=== PATIENT | male | born 1980 ===

== ENCOUNTER 2016-12-16 18:54 | Observation (INO) | payer MEDICAID, MEDICARE, OTHER ==
[2016-12-16 19:04] VITALS: BMI 25.8
--- NOTE | 2016-12-16 19:49 | C.PDOC ---
History Of Present Illness The patient, a 36 y/o male, presents to the ED via EMS for evaluation of public intoxication for an unknown duration. Patient admits to smoking PCP and was found ambulating through traffic nonsensically. Patient was physically confrontational with the police upon arrival. Otherwise, patient denies suicidal /homicidal ideation and has no physical complaints at this time. Time Seen by Provider: 12/16/16 19:11 Chief Complaint (Nursing): Substance Abuse History Per: Patient, EMS History/Exam Limitations: intoxication Onset/Duration Of Symptoms: Unknown Current Symptoms Are (Timing): Still Present Suicide/Self Injury Attempted (Context): None Modifying Factor(s): Other (+PCP) Associated Symptoms: denies: Suicidal Thoughts, Suicidal Plan Involuntary Hold By: None Recent travel outside of the [place]: No Additional History Per: Patient, EMS, Law Enforcement Past Medical History Reviewed: Historical Data, Nursing Documentation, Vital Signs Vital Signs: Last Vital Signs Temp 97.8 F 12/17/16 03:51 Pulse 58 L 12/17/16 03:51 Resp 16 12/17/16 03:51 BP 116/74 12/17/16 03:51 Pulse Ox 99 12/17/16 03:51 - Medical History PMH: Asthma, Bipolar Disorder, Depression Denies: Diabetes, Hepatitis, HIV, HTN, Chronic Kidney Disease, Seizures, Sexually Transmitted Disease Surgical History: No Surg Hx Family History: States: Unknown Family Hx - Social History Hx Tobacco Use: Yes Hx Alcohol Use: Yes (holidays) Hx Substance Use: Yes Review Of Systems Except As Marked, All Systems Reviewed And Found Negative. Psych: Positive for: Other (+public intoxication, PCP use ). Negative for: Suicidal ideation Physical Exam - Physical Exam Appears: No Acute Distress Skin: Normal Color, Warm, Dry Head: Atraumatic Eye(s): bilateral: Normal Inspection, EOMI Oral Mucosa: Moist Neck: Supple Chest: Symmetrical, No Deformity, No Tenderness Cardiovascular: Rhythm Regular, No Murmur Respiratory: Normal Breath Sounds, No Rales, No Rhonchi, No Wheezing Extremity: Normal ROM, Capillary Refill (less than 2 seconds ) Neurological/Psych: Other (intoxicated, bizarre ) Gait: Steady ED Course And Treatment O2 Sat by Pulse Oximetry: 96 (on RA) Pulse Ox Interpretation: Normal Progress Note: Labs ordered and reviewed. Reevaluation Time: 05:24 Reassessment Condition: Improved (sober, ambulatory, wants d/c.) Medical Decision Making Medical Decision Making: chronic pcp abuse ED OBSERVATION Date of observation admission: 12/16/16 Time of observation admission: 19:13 - Observation admission statement Patient is being placed in observation because:: intoxicated - Goals of Observation Goals of observation are:: sobriety - Progress Note Progress Note: 12/16/16 19:50 Patient is resting comfortably, vitals are stable. Disposition Doctor Will See Patient In The: Office Counseled Patient/Family Regarding: Studies Performed, Diagnosis - Disposition Disposition: HOME/ ROUTINE Disposition Time: 05:25 Condition: GOOD - Clinical Impression Clinical Impression: PCP (phencyclidine) abuse - Scribe Statement The provider has reviewed the documentation as recorded by the Scribe (Alejandra Poe) Provider Attestation: All medical record entries made by the Scribe were at my direction and personally dictated by me. I have reviewed the chart and agree that the record accurately reflects my personal performance of the history, physical exam, medical decision making, and the department course for this patient. I have also personally directed, reviewed, and agree with the discharge instructions and disposition.
[2016-12-16] MEDS ORDERED: DiphenhydrAMINE 50 mg/ml Inj IM STA (21:07)
[2016-12-16] MEDS ORDERED: DiphenhydrAMINE 50 mg/ml Inj ONE (21:10)
[2016-12-17 03:52] VITALS: RESP 16
[2016-12-17 05:37] VITALS: TEMP 98.1; O2SAT 98
[2016-12-17 05:38] VITALS: BP 118/72; PULSE 88
== END 2016-12-17 05:23 | disposition home or self-care (01) ==
LOC: C.ER 18:54 → C.9OBSV 19:13
PROVIDERS: ADMIT Internal Medicine; ATTEND Internal Medicine
DX: F16.10 Hallucinogen abuse, uncomplicated (principal); F17.200 Nicotine dependence, unspecified, uncomplicated
CPT/HCPCS: 96372; G0378; J1200; J2060; J3486

== ENCOUNTER 2017-04-20 20:15 | Emergency (ER) | payer SELFPAY ==
[2017-04-20 20:33] VITALS: O2SAT 97
--- NOTE | 2017-04-20 21:19 | C.PDOC ---
History Of Present Illness 36 year old male who was brought to the ER via EMS after was found intoxicated on ETOH and PCP. [place] was [place] [facility] [place] and was picked up and brought home by . Patient then left his home and continued to drink ETOH and smoke PCP. Denies physical complaints at this time. Time Seen by Provider: 04/20/17 21:18 Chief Complaint (Nursing): Substance Abuse History Per: Patient History/Exam Limitations: no limitations Onset/Duration Of Symptoms: Hrs Current Symptoms Are (Timing): Still Present Suicide/Self Injury Attempted (Context): None Modifying Factor(s): Alcohol Associated Symptoms: denies: Depression, Suicidal Thoughts, Suicidal Plan Involuntary Hold By: None Recent travel outside of the [place]: No Past Medical History Reviewed: Historical Data, Nursing Documentation, Vital Signs Vital Signs: Last Vital Signs Temp 98 F 04/20/17 21:46 Pulse 72 04/20/17 21:46 Resp 18 04/20/17 21:46 BP 128/70 04/20/17 21:46 Pulse Ox 97 04/20/17 23:47 - Medical History PMH: Anxiety, Asthma, Bipolar Disorder, Depression, Schizophrenia Surgical History: No Surg Hx Family History: States: Unknown Family Hx - Social History Hx Tobacco Use: Yes Hx Alcohol Use: Yes (unobtainable) Hx Substance Use: Yes (PCP) - Immunization History Hx Tetanus Toxoid Vaccination: No Hx Influenza Vaccination: No Hx Pneumococcal Vaccination: No Review Of Systems Constitutional: Negative for: Fever, Chills Gastrointestinal: Negative for: Nausea, Vomiting, Diarrhea Physical Exam - Physical Exam Appears: Non-toxic, Other (ETOH on breath, no injuries, bizarre) Skin: Normal Color, Warm, Dry Head: Atraumatic, Normacephalic Oral Mucosa: Moist Chest: Symmetrical, No Tenderness Cardiovascular: Rhythm Regular, No Murmur Respiratory: Normal Breath Sounds, No Rales, No Rhonchi, No Wheezing Gastrointestinal/Abdominal: Soft, No Tenderness Neurological/Psych: Oriented x3, Normal Speech, Normal Cognition Gait: Steady ED Course And Treatment O2 Sat by Pulse Oximetry: 97 (Room air) Pulse Ox Interpretation: Normal Medical Decision Making Medical Decision Making: typical etoh and pcp abuse just seen @ [facility] [place] earlier today, picked him up, brought him home, went out and did more pcp/etoh Stable gait, here to take home AGAIN. Disposition Doctor Will See Patient In The: Office Counseled Patient/Family Regarding: Studies Performed, Diagnosis - Disposition Referrals: Alcoholics Anonymous [Outside] [facility] [Outside] [facility] [Outside] [facility] [Outside] Disposition: HOME/ ROUTINE Disposition Time: 21:19 Condition: GOOD Additional Instructions: seek AA and detox programs. Stop PCP abuse Instructions: Abuse of Alcohol (ED) Forms: [employer] [facility] (Taiwanese) - Clinical Impression Clinical Impression: Alcohol abuse, PCP (phencyclidine) abuse - Scribe Statement The provider has reviewed the documentation as recorded by the Scribe Bashir Fairchild All medical record entries made by the Scribe were at my direction and personally dictated by me. I have reviewed the chart and agree that the record accurately reflects my personal performance of the history, physical exam, medical decision making, and the department course for this patient. I have also personally directed, reviewed, and agree with the discharge instructions and disposition.
[2017-04-20 21:48] VITALS: BP 128/70; PULSE 72; RESP 18; TEMP 98
== END 2017-04-20 21:30 | disposition home or self-care (01) ==
LOC: C.ER 20:15
DX: F16.10 Hallucinogen abuse, uncomplicated (principal); F10.10 Alcohol abuse, uncomplicated; Y90.9 Presence of alcohol in blood, level not specified

== ENCOUNTER 2017-08-24 22:40 | Emergency (ER) | payer SELFPAY ==
[2017-08-25 00:04] LABS: BARBITURATES, UR NEGATIVE (NEGATIVE); BENZODIAZEPINES, UR NEGATIVE (NEGATIVE); OPIATES, UR NEGATIVE (NEGATIVE)
[2017-08-25 00:14] LABS: PHENCYCLIDINE, UR POSITIVE (NEGATIVE)
--- NOTE | 2017-08-25 00:18 | C.PDOC ---
History Of Present Illness Patient SUZAN (acompanied by police) for agitation likely due to substance abuse. Patient apparently found in [facility] banging his head against a wall. Patient is angry and agitated on ED arrival, trying to hit staff. Time Seen by Provider: 08/24/17 22:44 Chief Complaint (Nursing): Substance Abuse History Per: EMS History/Exam Limitations: clinical condition Onset/Duration Of Symptoms: Unknown Current Symptoms Are (Timing): Still Present Severity: Moderate Past Medical History Reviewed: Historical Data, Nursing Documentation, Vital Signs Vital Signs: Last Vital Signs Temp 98.3 F 08/25/17 06:59 Pulse 86 08/25/17 06:59 Resp 20 08/25/17 06:59 BP 131/80 08/25/17 06:59 Pulse Ox 99 08/25/17 06:59 - Medical History PMH: Anxiety, Asthma, Bipolar Disorder, Depression, Schizophrenia Family History: States: Unknown Family Hx - Social History Hx Tobacco Use: Yes Hx Alcohol Use: Yes (unobtainable) Hx Substance Use: Yes (PCP) - Immunization History Hx Tetanus Toxoid Vaccination: No Hx Influenza Vaccination: No Hx Pneumococcal Vaccination: No Review Of Systems Review Of Systems: ROS cannot be obtained secondary to pt's inabilty to answer questions. Physical Exam - Physical Exam Appears: Other (patient angry and agitates, cursing and trying to hit/punch staff) Head: Atraumatic, Normacephalic, No Swelling, No Abrasion, No Laceration Eye(s): bilateral: Other (dilated B/L ) Oral Mucosa: Moist Cardiovascular: Rhythm Regular (tachycardic ) Respiratory: Normal Breath Sounds, No Rales, No Rhonchi, No Wheezing Gastrointestinal/Abdominal: Normal Exam, Bowel Sounds, Soft, No Tenderness Extremity: Normal ROM Extremity: Bilateral: Atraumatic, Normal Color And Temperature, Normal ROM Neurological/Psych: Other (under influence of drugs, awake, alert, agitated) ED Course And Treatment O2 Sat by Pulse Oximetry: 100 (RA) Pulse Ox Interpretation: Normal Progress Note: Patient dangerous to staff and self, placed in 4 point restraints on ED arrival and given Haldol 5mg and Ativan 2mg IM. UDS and accucheck ordered and reviewed. Prior visits reviewed, patient has multiple prior ED visits for PCP abuse/agitation. 1:30AM- Patient arousable to verbal stimuli, pending AM sobriety. 4:15am - Patient sleeping comfortably, arousable to verbal stimuli. Reevaluation Time: 06:35 Reassessment Condition: Improved (Patient reassessed, is currently AAOx3, ambulating normally in ED. He is clinically sober at this time, will discharge. ) Disposition - Disposition Referrals: Non [facility] Provider, [Primary Care Provider] - Disposition: HOME/ ROUTINE Disposition Time: 06:50 Condition: STABLE Additional Instructions: STOP USING PCP FOLLOW UP WITH YOUR DOCTOR/CLINIC IN 1-2 DAYS RETURN TO ER IF SYMPTOMS WORSEN Forms: [facility] (Uzbek), General Discharge Instructions Print Language: DUTCH - Clinical Impression Clinical Impression: PCP (phencyclidine) abuse, Cannabis abuse
[2017-08-25 07:01] VITALS: BP 131/80; PULSE 86; RESP 20; TEMP 98.3
[2017-08-27 09:56] VITALS: O2SAT 100
== END 2017-08-25 06:59 | disposition home or self-care (01) ==
LOC: SUPCPDRO 22:40 → C.ER 22:40
DX: F16.10 Hallucinogen abuse, uncomplicated (principal); F12.10 Cannabis abuse, uncomplicated
CPT/HCPCS: 96372; 99285; G0480; J1630; J2060

== ENCOUNTER 2018-01-17 04:26 | Emergency (ER) | payer SELFPAY ==
--- NOTE | 2018-01-17 04:58 | C.PDOC ---
History Of Present Illness 37 year old male brought in by police after he was attempting to jump in front of cars. Patient admits to using PCP today. Denies physical complaints at this time. Chief Complaint (Nursing): Substance Abuse History Per: Patient History/Exam Limitations: no limitations Onset/Duration Of Symptoms: Hrs Current Symptoms Are (Timing): Still Present Modifying Factor(s): Other (PCP) Associated Symptoms: denies: Depression, Suicidal Thoughts Involuntary Hold By: None Recent travel outside of the [place]: No Additional History Per: Law Enforcement Past Medical History Reviewed: Historical Data, Nursing Documentation, Vital Signs Vital Signs: Last Vital Signs Temp 97.9 F 01/17/18 04:37 Pulse 91 H 01/17/18 05:39 Resp 14 01/17/18 05:39 BP 105/57 L 01/17/18 05:39 Pulse Ox 98 01/17/18 05:39 - Medical History PMH: Anxiety, Asthma, Bipolar Disorder, Depression, Schizophrenia Family History: States: Unknown Family Hx - Social History Hx Tobacco Use: Yes Hx Alcohol Use: Yes (unobtainable) Hx Substance Use: Yes (PCP) - Immunization History Hx Tetanus Toxoid Vaccination: No Hx Influenza Vaccination: No Hx Pneumococcal Vaccination: No Review Of Systems Constitutional: Negative for: Fever, Chills Cardiovascular: Negative for: Chest Pain, Palpitations Respiratory: Negative for: Cough, Shortness of Breath Gastrointestinal: Negative for: Nausea, Vomiting Physical Exam - Physical Exam Appears: Non-toxic Skin: Normal Color, Warm, Dry Head: Atraumatic, Normacephalic Eye(s): bilateral: Normal Inspection Oral Mucosa: Moist Chest: Symmetrical, No Tenderness Cardiovascular: Rhythm Regular Respiratory: Normal Breath Sounds, No Rales, No Rhonchi, No Wheezing Gastrointestinal/Abdominal: Soft, No Tenderness Neurological/Psych: Oriented x3, Normal Speech ED Course And Treatment - Laboratory Results Result Diagrams: 01/17/18 05:04 01/17/18 05:04 O2 Sat by Pulse Oximetry: 98 (Room air) Pulse Ox Interpretation: Normal Progress Note: Blood work and urinalysis ordered. Disposition - Disposition Disposition Time: 07:00 Condition: STABLE Forms: [facility] (Citizen Of [place]) - Clinical Impression Clinical Impression: Substance abuse - Scribe Statement The provider has reviewed the documentation as recorded by the Scribe Bashir Fairchild All medical record entries made by the Scribe were at my direction and personally dictated by me. I have reviewed the chart and agree that the record accurately reflects my personal performance of the history, physical exam, medical decision making, and the department course for this patient. I have also personally directed, reviewed, and agree with the discharge instructions and disposition.
[2018-01-17 05:11] LABS: MONO # 0.7 K/uL (0.0-0.8)
[2018-01-17 05:16] LABS: BASO # 0.1 K/uL (0.0-0.2); BASO % 0.5 % (0.0-2.0); EOS % 0.4 % (0.0-4.0); HEMOGLOBIN 13.5 g/dL (12.0-18.0); LYMPH # 3.3 K/uL (1.0-4.3); LYMPH % 30.2 % (20.0-40.0); MEAN CELL VOLUME 90.7 fL (80.0-94.0); MEAN CORPUSCULAR HEMOGLOBIN 31.7 pg (27.0-31.0); MONO % 6.2 % (0.0-10.0); NEUT # 6.9 K/uL (1.8-7.0); NEUT % 62.7 % (50.0-75.0); NRBC % 0.1 % (0.0-2.0); RBC 4.25 Mil/uL (4.40-5.90); RED CELL DISTRIBUTION WIDTH 13.4 % (11.5-14.5)
[2018-01-17 05:22] LABS: URINE BILIRUBIN NEGATIVE (NEGATIVE); URINE BLOOD NEGATIVE (NEGATIVE); URINE CLARITY Hazy (Clear); URINE COLOR Amber (YELLOW); URINE GLUCOSE (UA) NORMAL (Normal); URINE LEUKOCYTE ESTERASE NEG Leu/uL (Negative); URINE PROTEIN NEGATIVE (NEGATIVE)
[2018-01-17 05:23] LABS: ALB/GLOB RATIO 1.3 (1.0-2.1); ALBUMIN 4.1 g/dL (3.5-5.0); ALT/SGPT 205 U/L (21-72); AST/SGOT 240 U/L (17-59); BLOOD UREA NITROGEN 18 mg/dL (9-20); CALCIUM 9.6 mg/dl (8.6-10.4); GFR AFRICAN-AMERICAN > 60; GFR NON-AFRICAN AMERICAN > 60
[2018-01-17 05:24] LABS: BARBITURATES, UR NEGATIVE (NEGATIVE); BENZODIAZEPINES, UR NEGATIVE (NEGATIVE); OPIATES, UR NEGATIVE (NEGATIVE)
[2018-01-17 05:29] LABS: PHENCYCLIDINE, UR POSITIVE (NEGATIVE)
[2018-01-17 14:31] VITALS: RESP 18
[2018-01-17 17:59] VITALS: BP 120/75; PULSE 98; TEMP 98.4; O2SAT 99
== END 2018-01-17 18:00 | disposition home or self-care (01) ==
LOC: C.ER 04:26
DX: F19.10 Other psychoactive substance abuse, uncomplicated (principal); F20.9 Schizophrenia, unspecified; Z72.0 Tobacco use
CPT/HCPCS: 80053; 81001; 85025; 96372; 99285; G0480; J1630; J2060

== ENCOUNTER 2018-01-28 17:02 | Emergency (ER) | payer SELFPAY ==
[2018-01-28 17:24] VITALS: BMI 22.9
[2018-01-28 18:49] LABS: BARBITURATES, UR NEGATIVE (NEGATIVE); BENZODIAZEPINES, UR NEGATIVE (NEGATIVE); OPIATES, UR NEGATIVE (NEGATIVE)
[2018-01-28 18:50] LABS: PHENCYCLIDINE, UR POSITIVE (NEGATIVE)
[2018-01-28 22:00] VITALS: O2SAT 96
--- NOTE | 2018-01-29 00:34 | C.PDOC ---
History Of Present Illness Pt was BIBEMS due to public intoxication. Time Seen by Provider: 01/28/18 17:13 Chief Complaint (Nursing): Substance Abuse History Per: Patient, EMS History/Exam Limitations: intoxication Onset/Duration Of Symptoms: Unknown (today) Current Symptoms Are (Timing): Still Present Modifying Factor(s): Marijuana (with PCP) Severity: Severe Associated Symptoms: Agitation Additional History Per: Prior Records Past Medical History Reviewed: Historical Data, Nursing Documentation, Vital Signs Vital Signs: Last Vital Signs Temp 98.9 F 01/28/18 17:32 Pulse 56 L 01/29/18 00:31 Resp 17 01/29/18 00:31 BP 102/61 01/28/18 21:58 Pulse Ox 96 01/29/18 00:34 - Medical History PMH: Anxiety, Asthma, Bipolar Disorder, Depression, Schizophrenia Family History: States: Unknown Family Hx - Social History Hx Tobacco Use: Yes Hx Alcohol Use: Yes Hx Substance Use: Yes (PCP) - Immunization History Hx Tetanus Toxoid Vaccination: No Hx Influenza Vaccination: No Hx Pneumococcal Vaccination: No Review Of Systems Review Of Systems: ROS cannot be obtained secondary to pt's inabilty to answer questions. Physical Exam - Physical Exam Appears: Combative, Agitated Skin: Normal Color, Warm, Dry Head: Atraumatic, Normacephalic Eye(s): bilateral: PERRL Neck: Normal ROM, No Midline Cervical Tenderness, No Step Off Deformity, Supple Chest: Symmetrical, No Deformity Cardiovascular: Rhythm Regular Respiratory: Normal Breath Sounds, No Accessory Muscle Use Gastrointestinal/Abdominal: Soft Extremity: Normal ROM, No Deformity Neurological/Psych: Inappropriate Response To Command, Other (Moving all extremities) ED Course And Treatment O2 Sat by Pulse Oximetry: 96 Pulse Ox Interpretation: Normal Progress Note: Pt was given Haldol and Ativan IM as a treatment for his agitation. Pt sleeping calmly after medications. Disposition - Disposition Disposition Time: 01:00 Condition: STABLE - Clinical Impression Clinical Impression: Phencyclidine intoxication Physician Patient Turnover Patient Signed Over To: Tami Forde Handoff Comments: to reassess pt once sedative medications wear off.
[2018-01-29 05:24] VITALS: BP 110/78; PULSE 84; RESP 18; TEMP 97.5
== END 2018-01-29 05:26 | disposition home or self-care (01) ==
LOC: C.ER 17:02
DX: F16.129 Hallucinogen abuse with intoxication, unspecified (principal)
CPT/HCPCS: 82948; 96372; 99285; G0480; J1630; J2060